=== PATIENT | male | born 1990 | race Caucasian/White ===

== ENCOUNTER 2021-12-19 20:46 | Emergency (ER) | payer MEDICARE, MEDICAID, SELFPAY ==
--- NOTE | ~2021-12-19 | XR_ITS ---
EXAMINATION: XR chest 1V portable Exam Date/Time: 12/19/2021 21:15 CDT HISTORY: sob, cough Comparison: None available. RESULT: Lines, tubes, and devices: None. Lungs and pleura: Streaky linear opacities in the bilateral lung bases. Cardiomediastinal silhouette: Normal. Other: No acute osseous or upper abdominal finding. IMPRESSION: Bilateral basilar atelectasis/scar. Infection not excluded. Reviewed, dictated and finalized at location K.
--- NOTE | 2021-12-19 20:52 | ED.CHESTPAIN ---
HPI - Chest Pain General Chief Complaint: Upper Respiratory Infection Stated Complaint: tightness in chest;trouble breahting;throwing up Time Seen by Provider: 12/19/21 20:52 Source: patient Mode of arrival: ambulatory History of Present Illness HPI narrative: 31-year-old male with bipolar, Tourette's, autism,presents to the ER with a 1 day history of -- chest pain/discomfort made worse by deep breathing -- shortness of breath -- cough -- 2 episodes of diarrhea was COVID positive in October of 2021. history of childhood asthma. MD complaint: chest pain Onset (ago): day(s) ( started yesterday) Onset: during rest Pain location: substernal Pain radiation: none Severity: moderate Pain scale (0-10): 5 Quality: tightness Relieving factors: nothing Exacerbating factors: nothing Associated symptoms: nausea Risk Factors Coronary artery disease risk factors: none Thoracic aortic dissection risk factors: none Related Data Home Medications Medication Instructions Recorded Confirmed citalopram 20 mg tablet 20 mg PO DAILY 12/19/21 12/19/21 guaifenesin 600 mg tablet, 600 mg PO Q12H 12/19/21 12/19/21 extended release 12 hr lamotrigine 25 mg tablet 75 mg PO DAILY 12/19/21 12/19/21 melatonin 5 mg tablet 5 mg PO HS PRN Insomnia 12/19/21 12/19/21 Allergies Allergy/AdvReac Type Severity Reaction Status Date / Time cefaclor [From Ceclor] Allergy Unknown Verified 12/19/21 21:01 zaleplon [From Sonata] Allergy Unknown Verified 12/19/21 21:01 Review of Systems Review of Systems: All systems reviewed & are unremarkable except as noted in HPI and below Constitutional: Constitutional: Reports as per HPI and Reports no additional constitutional complaints Eyes: Eyes: Reports as per HPI and Reports no additional eye complaints ENT: Reports system reviewed and no additional complaints, except as documented and Reports nasal congestion Cardiovascular: Cardiovascular: Reports as per HPI and Reports chest pain Respiratory: Respiratory: Reports as per HPI, Reports chest congestion, Reports cough, Reports dyspnea and Reports wheezing Gastrointestinal: Gastrointestinal: Reports as per HPI, Reports no additional gastrointestinal complaints, Reports diarrhea and Reports vomiting Genitourinary: Genitourinary: Reports no additional male genitourinary complaints and Reports as per HPI Musculoskeletal: Musculoskeletal: Reports no additional musculoskeletal complaints and Reports as per HPI Integumentary/Breasts: Skin/Breast: Reports system reviewed and no additional complaints, except as docu and Reports as per HPI Neurologic: Reports system reviewed and no additional complaints, except as documented and Reports as per HPI Psychiatric: Psychiatric: Reports no additional psychiatric complaints and Reports as per HPI Endocrine: Endocrine: Reports no additional endocrine complaints and Reports as per HPI Hematologic/Lymphatic: Hematologic/Lymphatic: Reports no additional hematologic/lymphatic complaints and Reports as per HPI Allergic/Immunologic: Allergic/Immunologic: Reports no additional allergic/immunologic complaints and Reports as per HPI Exam Const: General: healthy appearing Orientation/consciousness: patient oriented x3 Limitations: no limitations HENMT: Head: normal to inspection Ears: external ears normal Face/Nose/Sinus: Normal external nose present Face and sinus: normal facial exam Mouth: Yes Normal oral and palatal mucosa present Throat: posterior oropharynx normal Eyes: Conjunctivae: conjunctivae normal Pupils: Equal, round and reactive pupils present EOM: EOMs intact bilaterally Direct Ophthalmoscopy: no photophobia Neck: Neck: normal visual inspection, no lymphadenopathy and no meningeal signs Chest: Chest palpation & inspection: normal inspection of the chest Resp: Effort & Inspection: normal respiratory effort Auscultation: rhonchi and diminished lung sounds Cardio: Rate: regular rate Rhythm: regular r
[2021-12-19 21:02] VITALS: BP 126/76; PULSE 98; RESP 22; TEMP 36.9; O2SAT 99
[2021-12-19 21:30] VITALS: PULSE 93; RESP 19; O2SAT 99
[2021-12-19 21:30] LABS: Basophils Absolute Auto 0.09 K/mm3 (0.00-0.10); Basophils Percent Auto 0.7 % (0.0-1.0); Eosinophils Absolute Auto 0.98 K/mm3 (0.02-0.50); Eosinophils Percent Auto 7.5 % (1.0-6.0); Hematocrit 41.5 % (40.0-54.0); Hemoglobin 14.2 g/dL (14.0-18.0); Immature Granulocyte Absolute 0.04 K/mm3 (0.00-0.00); Immature Granulocyte Percent A 0.3 % (0.0-0.0); Lymphocytes Absolute Auto 2.17 K/mm3 (1.10-4.50); Lymphocytes Percent Auto 16.6 % (18.0-42.0); Mean Corpuscular HGB Conc 34.2 g/dL (32.0-36.0); Mean Corpuscular Hemoglobin 29.2 pg (27.0-31.0); Mean Corpuscular Volume 85.2 fL (78.0-102.0); Mean Platelet Volume 9.4 fl (8.7-11.0); Monocytes Absolute Auto 0.82 K/mm3 (0.10-0.90); Monocytes Percent Auto 6.3 % (2.0-11.0); Neutrophils Absolute Auto 8.9 K/mm3 (1.7-7.2); Neutrophils Percent Auto 68.6 % (50.0-70.0); Platelet Count Result 266 K/mm3 (150-420); Red Blood Count 4.87 M/mm3 (4.70-6.10); Red Cell Distribution Width 11.8 % (11.6-14.4)
[2021-12-19] MEDS: IPRATROPIUM 0.5 MG/ALBUTEROL SULFATE 2.5 MG AMPUL.NEB 3 ML INHALATION (21:44)
[2021-12-19 21:45] VITALS: PULSE 93; RESP 18; O2SAT 99
[2021-12-19 21:45] LABS: Prothrombin Time 10.6 Seconds (9.50-12.10)
[2021-12-19 21:56] LABS: Alanine Aminotransferase 20 U/L (16-63); Albumin Level 3.7 g/dL (3.4-5.0); Alkaline Phosphatase 151 U/L (46-116); Anion Gap 7 mmol/L (8-16); Aspartate Amino Transferase 14 U/L (15-37); Bilirubin,Total 0.4 mg/dL (0.00-1.00); Blood Urea Nitrogen 17 mg/dL (7-18); Calcium 8.9 mg/dL (8.5-10.1); Carbon Dioxide 28 mmol/L (21-32); Chloride 105 mmol/L (98-108); Estimated CRCL calculation 111 ml/min; Estimated Glomerular Filt Rate > 60; Glucose 111 mg/dL (70-99); NT Pro B Type Natriuretic Pept 125 pg/mL (0-125); Osmolality Calculated 292 mOsm/kg (285-295); Potassium 3.9 mmol/L (3.5-5.1); Sodium 140 mmol/L (136-145); Total Protein 6.9 g/dL (6.4-8.2)
[2021-12-19 22:05] LABS: Troponin I 6.2 ng/L (0.00-60.4)
[2021-12-19 22:13] VITALS: BP 110/70; PULSE 92; RESP 20; O2SAT 100
[2021-12-19 22:24] LABS: SARS-CoV-2 RNA PCR Negative (Negative)
[2021-12-19 22:30] LABS: Influenza A QL RT-PCR Negative (Negative); Influenza B QL RT-PCR Negative (Negative)
[2021-12-19 22:31] LABS: RSV RNA, RT-PCR Negative (Negative)
[2021-12-19] MEDS: ALBUTEROL SULFATE (*SP) INHALER 2 PUFF INHALATION (22:46)
[2021-12-19] MEDS: AZITHROMYCIN 250 MG TABLET 500 MG PO (22:46)
[2021-12-19] MEDS: methylPREDNISolone SOD SUCC 125 MG VIAL IM (22:47)
[2021-12-19 22:59] VITALS: BP 122/71; PULSE 98; RESP 20; TEMP 36.8; O2SAT 100
== END 2021-12-19 23:01 | disposition home or self-care (01) ==
PROVIDERS: Emergency Provider Internal Medicine Critical Care Medicine
DX: J06.9 Acute upper respiratory infection, unspecified (principal); J45.901 Unspecified asthma with (acute) exacerbation; Z20.822 Contact with and (suspected) exposure to COVID-19
CPT/HCPCS: 36415; 71045; 80053; 83880; 84484; 85025; 85610; 87502; 94640; 96372; 99284; A9270; C9803; J2930; U0003; U0005